=== PATIENT | male | born 1930 | race Caucasian/White ===

== ENCOUNTER 2018-07-22 17:05 | Observation (INO) | payer MEDICARE, OTHER ==
[2018-07-22] MEDS ORDERED: FUROSEMIDE 10 MG/ML VIAL IV ONE (17:43)
[2018-07-22 18:00] LABS: Hematocrit 35.4 % (42.0-52.0); Hemoglobin 11.2 gm/dL (13.5-18.0); Mean Cell Volume 94.9 fl (78-100); Mean Corpuscular Hgb Conc 31.6 g/dl (32-36); Mean Platelet Volume 9.3 fl (8-11.3); Neutrophil # 5.3 K/mm3 (1.3-6.0); Neutrophil % 72.9 % (42-75.0); Platelet Count 138 K/mm3 (150-450); Red Blood Count 3.73 M/mm3 (4.7-6.0); Red Cell Distribution Width 13.7 % (11.5-14.0); White Blood Count 7.3 K/mm3 (4.0-10.5)
[2018-07-22 18:15] LABS: Prothrombin Time (Patient) 24.9 Seconds (9.0-11.0)
[2018-07-22 18:16] LABS: INR 2.47 INR (0.90-1.10)
[2018-07-22 18:23] LABS: Troponin I Less than 0.017 ng/mL (0.00-0.10)
[2018-07-22 18:26] LABS: ALT 24 U/L (19-67); AST 21 U/L (0-48); Alkaline Phosphatase * 61 U/L (50-170); Anion Gap 9.8 mmol/L (6.8-13.8); BNP * 4130 pg/mL (5-650); BUN/Creatinine Ratio 25.4 (9.0-21.6); Bilirubin, Total 0.6 mg/dL (0.0-1.1); Blood Urea Nitrogen 44 mg/dL (6-23); Ca. Corrected For Albumin 9.1 mg/dL (8.4-10.2); Calcium * 8.6 mg/dL (7.9-10.9); Carbon Dioxide 27.3 mmol/L (24-32.6); Chloride 104 mmol/L (97-106); Glucose * 139 mg/dL (70-110); Potassium 4.1 mmol/L (3.4-4.6); Sodium 137 mmol/L (132-142); Total Protein 7.4 gm/dL (6.2-8.2)
--- NOTE | 2018-07-22 19:23 | ERNOTE ---
Dyspnea - Date Date of Service: 07/22/18 - General Presenting Symptoms: shortness of breath Time Seen by Provider: 07/22/18 17:17 Source: patient, family Exam Limitations: no limitations - Immun/Allergies/Home Medications Immunizations: IMMUNIZATION HX Immunizations Up to Date Yes History of Influenza Vaccine Yes Hx Pneumococcal Vaccination Yes Allergies/Adverse Reactions: Allergies phenytoin [From Dilantin] Allergy (Intermediate, Verified 07/21/18 10:09) hives lisinopril Adverse Reaction (Intermediate, Verified 07/21/18 10:09) cough Home Medications: HOME MEDICATIONS Metoprolol Tartrate [Lopressor] 12.5 mg PO BID 11/14/14 [Last Taken 11/14/14 09:00] Simvastatin [Zocor] 10 mg PO DAILY 11/14/14 [Last Taken 11/13/14 21:00] Levothyroxine Sodium [Synthroid] 75 mcg PO DAILY@0700 #30 tab 11/22/14 [Last Taken Unknown] albuterol sulfate concentrate 2.5 mg/0.5 mL solution for nebulization 2.5 mg IH BID PRN #30 ea 03/06/18 [Last Taken Unknown] diltiazem CD 240 mg capsule,extended release 24 hr 240 mg PO DAILY #90 cap 05/19/18 [Last Taken Unknown] blood sugar diagnostic strips See Dose Instructions .ROUTE .MEDSUPPLY #20 ea 05/26/18 [Last Taken Unknown] compressor, for nebulizer See Dose Instructions .ROUTE .MEDSUPPLY #1 ea 05/26/18 [Last Taken Unknown] diabetic supplies, miscellaneous kit See Dose Instructions .ROUTE .MEDSUPPLY #1 ea 05/26/18 [Last Taken Unknown] glimepiride 4 mg tablet 4 mg PO DAILY tab 05/26/18 [Last Taken Unknown] lancets See Dose Instructions .ROUTE .MEDSUPPLY #50 ea 05/26/18 [Last Taken Unknown] losartan 100 mg tablet 100 mg PO DAILY 05/26/18 [Last Taken Unknown] warfarin 4 mg tablet 4 mg PO DAILY tab 05/26/18 [Last Taken Unknown] Finasteride [Proscar] 5 mg PO DAILY 07/17/18 [Last Taken Unknown] Potassium Chloride [K-Tab ER] 10 meq PO DAILY #30 tablet.er 07/17/18 [Last Taken Unknown] Tamsulosin HCl [Flomax] 0.4 mg PO DAILY@1800 07/17/18 [Last Taken Unknown] furosemide 40 mg tablet 80 mg PO DAILY tab 07/21/18 [Last Taken Unknown] - History of Present Illness Narrative: Patient presents to the ED for increased SOB. He has been being treated for CHF with doubled lasix. He by report lives alone and is becoming gradually more SOB with exertion despite increased lasix. Increased leg swelling. Rest resolves SOB. No CP. No fever or cough. Has been seen in ED and in the office. Taking medication sas directed. By report may have had a 5 LBS weight gain over the last 24 hours Severity: moderate Treatment CLIENT EXECUTIVE: other - home medications Initiating event: Denies: out of meds Frequency of episodes: Reports: occassional episodes Modifying Factors - (Improves): Reports: other - rest Modifying Factors (Worsens): Reports: other - exertion Associated Symptoms-Dyspnea: Reports: ankle/leg swelling. Denies: fever/chills, chest pain/discomfort, wheezing Prior Treatment: Reports: recently seen Review of Systems - Review of Systems Constitutional: Absent: fever ENT: Absent: sore throat Respiratory: Present: shortness of breath Cardiology: Absent: chest pain Gastrointestinal/Abdominal: Absent: abdominal pain Skin: Absent: rash All Other Systems: All systems neg except as marked Medical History (Last Reviewed 07/22/18 @ 19:19 by Tl Valdez MD) Psoriasis (Chronic) Onset Date: ~2003 Obesity (Chronic) Onset Date: ~2002 Mitral regurgitation (Chronic) Onset Date: ~2004 Hypothyroidism (Chronic) Onset Date: Unknown Hypertension (Chronic) Onset Date: ~1992 Hyperlipidemia (Chronic) Onset Date: ~1997 Gout (Chronic) Onset Date: ~2002 Diabetes 1.5, 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 NYHA Class II Chronic kidney disease (Chronic) Onset Date: Unknown Stage III Carotid artery disease (Chronic) Onset Date: ~2002 Atrial fibrillation (Chronic) Onset Date: ~2002 Chronic developed post CABG. Coumadin [place] Asbestos exposure (Chronic) Onset Date: Unknown Pleural effusion Onset Date: ~10/2005 Pneumonia Onset Date: ~10/2005 with decortication 2011 right parapneumonic effusion Restrictive lung disease Onset Date: Unknown Surgical History: Surgical History (Last Reviewed 07/22/18 @ 19:19 by Tl Valdez MD) H/O colonoscopy Onset Date: ~11/18/14 Hernando with decompression and dilation of anal canal H/O colonoscopy Onset Date: ~08/09/11 With Biopsy. Rectum biopsy benign squamous mucosa with mild inflammation. Reactive squamous mucosa consistent with a fibroephithelial polyp. Dr. Villagomez H/O inguinal hernia repair Onset Date: ~08/1987 Left History of cardiac cath Onset Date: ~04/30/03 EF 62 right dominant, L main normal, LAD prox occluded. Diag 50-75% LCx bifurcating OM, origin 50-75% stenosis. RCA large and diffuse irregs prox. Distal 50-75% stenosis. PDA mid 50-75% PLB large no sig disease. History of coronary artery bypass surgery Onset Date: ~2002 3 vessel. HOPE to the LAD, SVG to the posterior lateral branch and SVG to the OM Pleural scarring Onset Date: ~2006 Left lung decortication for chronic exudative pleural effusion with residual restrictive lung disease and pleural scarring. Family History: Family History (Last Reviewed 07/22/18 @ 19:19 by Tl Valdez MD) Father , age 72 CHF (congestive heart failure) Mother , age 32 Strep throat Blood infection Brother , age 42 Brain aneurysm Social History: Preferred Language Bolivian Do you have any scientology or Yes: judaism cultural preference? Smoking Status Former smoker Have you smoked in the past 12 No months Do you dip or chew tobacco No Alcohol Use rarely Drug Use none (Last Reviewed 07/21/18 @ 10:12 by Harriet Rojas RN) No Social History Section defined Physical Exam - Physical Exam General Appearance: Present: alert, no apparent distress Head Exam: Present: normal inspection, no evidence of injury Ears, Nose, Throat: Present: normal ENT inspection Neck: Present: normal inspection Respiratory: Present: no respiratory distress, no accessory muscle use, other - faint crackles in the bases Cardiovascular/Chest: Present: normal peripheral pulses, irregularly irregular Gastrointestinal/Abdominal: Present: normal bowel sounds, nontender, nondistended, soft Back Exam: Present: no vertebral tenderness Extremity Exam: Present: pedal edema, extremity edema, other - 3+ edema bilatera lly Neurological Exam: Present: alert, no motor/sensory deficits Skin Exam: Present: normal color, warm/dry Progress - Results and Orders Patient's Lab Results:: I have reviewed the patient's lab results. - Vital Signs Patient's Vital Signs:: I have reviewed the patient's vital signs. Vital Signs: Vital Signs 07/22/18 17:05 07/22/18 17:43 07/22/18 17:49 Temperature 36.9 C Pulse Rate 66 66 70 Respiratory Rate 21 H 21 H 20 Blood Pressure 214/98 H 173/69 H 173/69 H O2 Sat by Pulse Oximetry 94 94 94 07/22/18 17:58 Temperature Pulse Rate 84 Respiratory Rate Blood Pressure 155/78 H O2 Sat by Pulse Oximetry - EKG EKG: atrial fibrillation EKG read: Interp. by me EKG Comments: A fib rate 75. Non-specific changes, no clear STEMI - X-Ray X-Ray #1 X-Ray: chest Interpretation: Interp. by me X-ray Comments: No real-time radiology reads. CHF . - Progress/Reassessment Chief Complaint: Dyspnea Progress Note-Subjective: 07/22/18 19:20 Patient had significant WOB with exertion and desats to 87 %. IV lasix given. D/W Dr Cobb. After this I discussed options with the patient, inpatient vs outpatient. Family felt that patient should be admitted and patient was agreeable to this. Dr Cobb was also agreeable. Failure of outpatient management. Departure Clinical Impression: CHF (congestive heart failure), Failure of outpatient treatment - Departure Disposition: Still a patient Condition: Fair
[2018-07-22] MEDS ORDERED: ALBUTEROL SULFATE 2.5 MG/0.5 ML VIAL.NEB IH PRN (21:29)
[2018-07-23] MEDS: METOPROLOL TARTRATE 25 MG TABLET PO SCH ×2 (00:17→09:11)
[2018-07-23 05:44] LABS: Anion Gap 10.6 mmol/L (6.8-13.8); BUN/Creatinine Ratio 24.8 (9.0-21.6); Calcium * 8.8 mg/dL (7.9-10.9); Estimated Creat Clear 30.9; Potassium 3.6 mmol/L (3.4-4.6)
[2018-07-23] MEDS ORDERED: FUROSEMIDE 10 MG/ML VIAL IV ONE (06:00)
[2018-07-23] MEDS ORDERED: LEVOTHYROXINE SODIUM 75 MCG TABLET PO SCH (07:00)
[2018-07-23] MEDS ORDERED: POTASSIUM CHLORIDE 20 MEQ TABLET.SA PO ONE (07:18)
[2018-07-23] MEDS: NYSTATIN 15 APPL BTL TP SCH ×2 (08:01→09:15)
--- NOTE | 2018-07-23 08:07 | HP ---
Chief Complaint - Chief Complaint Date of Service: 07/23/18 Time of Service: 07:46 Chief Complaint: shorteness of breath History of Present Illness: Ari Disla, is an 88-year-old white male, with past medical history of congestive heart failure, coronary artery disease, chronic renal failure stage III, diabetes mellitus type 2, hypertension, restrictive lung disease, who was admitted on 07/22/2018 because of increasing shortness of breath. 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 He denied chest pain, palpitations, coughing, fever or chills. He says that he could not walk more than 50 feet before he would start puffing. He was seen in the emergency room last week and was diagnosed with exacerbation of his congestive heart failure and was sent home on double his Lasix dose. He fo llowed up in the clinic 3 days later with improvement. He had lost 7 pounds then. His doubled Lasix dose was continued. Since the visit his shortness of breath started again especially with exertion but ot at rest. He had an increase in weight of 5 pounds with marked swelling of his legs. He went back to the emergency room and was admitted for further treatment. He got 40 mg of Lasix in the emergency room and another 40 mg this morning and has diuresed sginificantly and feels better. 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 NYHA Class II Chronic kidney disease (Chronic) Onset Date: Unknown Stage III Carotid artery disease (Chronic) Onset Date: ~2002 Atrial fibrillation (Chronic) Onset Date: ~2002 Chronic developed post CABG. Coumadin [place] Asbestos exposure (Chronic) Onset Date: Unknown Pleural effusion Onset Date: ~10/2005 Pneumonia Onset Date: ~10/2005 with decortication 2011 right parapneumonic effusion Restrictive lung disease Onset Date: Unknown Surgical History: Surgical History (Last Reviewed 07/22/18 @ 20:46 by Linnea Aguilera RN) H/O colonoscopy Onset Date: ~11/18/14 Hernando with decompression and dilation of anal canal H/O colonoscopy Onset Date: ~08/09/11 With Biopsy. Rectum biopsy benign squamous mucosa with mild inflammation. Reactive squamous mucosa consistent with a fibroephithelial polyp. Dr. Villagomez H/O inguinal hernia repair Onset Date: ~08/1987 Left History of cardiac cath Onset Date: ~04/30/03 EF 62 right dominant, L main normal, LAD prox occluded. Diag 50-75% LCx bifurcating OM, origin 50-75% stenosis. RCA large and diffuse irregs prox. Distal 50-75% stenosis. PDA mid 50-75% PLB large no sig disease. History of coronary artery bypass surgery Onset Date: ~2002 3 vessel. HOPE to the LAD, SVG to the posterior lateral branch and SVG to the OM Pleural scarring Onset Date: ~2006 Left lung decortication for chronic exudative pleural effusion with residual restrictive lung disease and pleural scarring. Family History: Family History (Last Reviewed 07/22/18 @ 20:46 by Linnea Aguilera RN) Father , age 72 CHF (congestive heart failure) Mother , age 32 Strep throat Blood infection Brother , age 42 Brain aneurysm Social History: Patient Lives/Resources Home Utilized Occupation retired Preferred Language Irish Do you have any hindu or Yes: Caodaism cultural preference? Smoking Status Former smoker Have you smoked in the past 12 No months Do you dip or chew tobacco No Alcohol Use rarely Drug Use none (Last Reviewed 07/21/18 @ 10:12 by Harriet Rojas RN) No Social History Section defined Review Of Systems (GEN) - Review of Systems Generalized/Overall Review: Absent: Weakness, Chills, Fever EENTM: Absent: Double Vision Respiratory: Present: Shortness of Breath. Absent: Cough, Orthopnea, Wheezing Cardiac: Present: Edema. Absent: Chest Pain, Palpitations Abdominal: Absent: Nausea, Vomiting Genitourinary: Absent: Urgency, Frequency Musculoskeletal: Present: Joint Pain Immunizations: IMMUNIZATION HX Immunizations Up to Date Yes History of Influenza Vaccine Yes Hx Pneumococcal Vaccination Yes Allergies/Adverse Reactions: Allergies Allergy/AdvReac Type Severity Reaction Status Date / Time phenytoin [From Dilantin] Allergy Intermediate hives Verified 07/21/18 10:09 lisinopril AdvReac Intermediate cough Verified 07/21/18 10:09 Home Medications: HOME MEDICATIONS Metoprolol Tartrate [Lopressor] 12.5 mg PO BID 11/14/14 [Last Taken 11/14/14 09:00] Simvastatin [Zocor] 10 mg PO DAILY 11/14/14 [Last Taken 11/13/14 21:00] Levothyroxine Sodium [Synthroid] 75 mcg PO DAILY@0700 #30 tab 11/22/14 [Last Taken Unknown] albuterol sulfate concentrate 2.5 mg/0.5 mL solution for nebulization 2.5 mg IH BID PRN #30 ea 03/06/18 [Last Taken Unknown] diltiazem CD 240 mg capsule,extended release 24 hr 240 mg PO DAILY #90 cap 05/19/18 [Last Taken Unknown] glimepiride 4 mg tablet 4 mg PO DAILY tab 05/26/18 [Last Taken Unknown] losartan 100 mg tablet 100 mg PO DAILY 05/26/18 [Last Taken Unknown] warfarin 4 mg tablet 4 mg PO .TU,WE,TH,SA,[place] tab 05/26/18 [Last Taken Unknown] Finasteride [Proscar] 5 mg PO DAILY 07/17/18 [Last Taken Unknown] Tamsulosin HCl [Flomax] 0.4 mg PO DAILY@1800 07/17/18 [Last Taken Unknown] furosemide 40 mg tablet 80 mg PO DAILY tab 07/21/18 [Last Taken Unknown] Potassium Chloride [K-Tab ER] 5 meq PO DAILY 07/22/18 [Last Taken Unknown] Warfarin Sodium 2 mg PO .MON,FRI 07/22/18 [Last Taken Unknown] Exam - Exam Vital Signs: Vital Signs - Last Taken Temp 37.2 C 07/23/18 02:46 Pulse 73 07/23/18 05:19 Resp 18 07/23/18 02:46 BP 157/74 H 07/23/18 05:19 Pulse Ox 90 L 07/23/18 02:46 Constitutional: Present: Alert, Oriented x3, Cooperative ENT Exam: Present: hard of hearing Eye Exam: bilateral eye: normal inspection, PERRL, EOMI Neck: Present: supple Respiratory: Present: decreased breath sounds, No rales, No wheezing Cardiovascular/Chest: Present: no JVD, systolic murmur, irregularly irregular Abdomen: Present: Normal bowel sounds, soft, nontender, nondistended Extremity: Present: no calf tenderness, lower extremity edema Diagnostic Studies: Abnormal Lab Results 07/22/18 07/22/18 07/22/18 Range/Units 17:50 17:50 17:50 RBC 3.73 L (4.7-6.0) M/mm3 Hgb 11.2 L (13.5-18.0) gm/dL Hct 35.4 L (42.0-52.0) % MCHC 31.6 L (32-36) g/dl Plt Count 138 L (150-450) K/mm3 Lymphocytes % 12.8 L (20-51) % Monocytes % 11.2 H (0.0-9) % Lymphocytes # 0.94 L (1.5-3.5) k/mm3 PT 24.9 H (9.0-11.0) Seconds INR (Anticoag Therapy) 2.47 H (0.90-1.10) INR BUN 44 H (6-23) mg/dL Creatinine 1.73 H (0.4-1.4) mg/dL Est GFR (Non-Af Amer) 40 L (60-130) mL/min BUN/Creatinine Ratio 25.4 H (9.0-21.6) Random Glucose 139 H D (70-110) mg/dL B-Natriuretic Peptide 4130 H (5-650) pg/mL Albumin 3.0 L (3.4-5.0) gm/dl 07/23/18 Range/Units 05:21 RBC (4.7-6.0) M/mm3 Hgb (13.5-18.0) gm/dL Hct (42.0-52.0) % MCHC (32-36) g/dl Plt Count (150-450) K/mm3 Lymphocytes % (20-51) % Monocytes % (0.0-9) % Lymphocytes # (1.5-3.5) k/mm3 PT (9.0-11.0) Seconds INR (Anticoag Therapy) (0.90-1.10) INR BUN 41 H (6-23) mg/dL Creatinine 1.65 H (0.4-1.4) mg/dL Est GFR (Non-Af Amer) 42 L (60-130) mL/min BUN/Creatinine Ratio 24.8 H (9.0-21.6) Random Glucose (70-110) mg/dL B-Natriuretic Peptide 4467 H (5-650) pg/mL Albumin (3.4-5.0) gm/dl Laboratory Results WBC 7.3 K/mm3 (4.0-10.5) 07/22/18 17:50 RBC 3.73 M/mm3 (4.7-6.0) L 07/22/18 17:50 Hgb 11.2 gm/dL (13.5-18.0) L 07/22/18 17:50 Hct 35.4 % (42.0-52.0) L 07/22/18 17:50 MCV 94.9 fl (78-100) 07/22/18 17:50 MCH 30.0 pg (27-31) 07/22/18 17:50 MCHC 31.6 g/dl (32-36) L 07/22/18 17:50 RDW 13.7 % (11.5-14.0) 07/22/18 17:50 Plt Count 138 K/mm3 (150-450) L 07/22/18 17:50 MPV 9.3 fl (8-11.3) 07/22/18 17:50 Immature Gran % (Auto) 0.40 % (0.001-0.429) 07/22/18 17:50 Immature Gran # (Auto) 0.03 K/mm3 (0.000-0.0310) 07/22/18 17:50 Neutrophils % 72.9 % (42-75.0) 07/22/18 17:50 Lymphocytes % 12.8 % (20-51) L 07/22/18 17:50 Monocytes % 11.2 % (0.0-9) H 07/22/18 17:50 Eosinophils % 1.9 % (0.0-3.0) 07/22/18 17:50 Basophils % 0.8 % (0.0-1.0) 07/22/18 17:50 Nucleated RBC % 0.0 k/mm3 (0-1) 07/22/18 17:50 Neutrophils # 5.3 K/mm3 (1.3-6.0) 07/22/18 17:50 Lymphocytes # 0.94 k/mm3 (1.5-3.5) L 07/22/18 17:50 Monocytes # 0.8 k/mm3 (0.0-1.0) 07/22/18 17:50 Eosinophils # 0.1 k/mm3 (0.0-0.7) 07/22/18 17:50 Absolute Basophils 0.1 k/mm3 (0.0-0.1) 07/22/18 17:50 PT 24.9 Seconds (9.0-11.0) H 07/22/18 17:50 INR (Anticoag Therapy) 2.47 INR (0.90-1.10) H 07/22/18 17:50 Sodium 141 mmol/L (132-142) 07/23/18 05:21 Plasma Sodium 141 mmol/L (130-142) 07/23/18 05:21 Potassium 3.6 mmol/L (3.4-4.6) 07/23/18 05:21 Chloride 106 mmol/L (97-106) 07/23/18 05:21 Carbon Dioxide 28.0 mmol/L (24-32.6) 07/23/18 05:21 Anion Gap 10.6 mmol/L (6.8-13.8) 07/23/18 05:21 BUN 41 mg/dL (6-23) H 07/23/18 05:21 Creatinine 1.65 mg/dL (0.4-1.4) H 07/23/18 05:21 Est GFR (Non-Af Amer) 42 mL/min (60-130) L 07/23/18 05:21 BUN/Creatinine Ratio 24.8 (9.0-21.6) H 07/23/18 05:21 Random Glucose 78 mg/dL (70-110) D 07/23/18 05:21 Calcium 8.8 mg/dL (7.9-10.9) 07/23/18 05:21 Calcium Adj for Albumin 9.1 mg/dL (8.4-10.2) 07/22/18 17:50 Total Bilirubin 0.6 mg/dL (0.0-1.1) 07/22/18 17:50 AST 21 U/L (0-48) 07/22/18 17:50 ALT 24 U/L (19-67) 07/22/18 17:50 Alkaline Phosphatase 61 U/L (50-170) 07/22/18 17:50 Troponin I Less than 0.017 ng/mL (0.00-0.10) 07/22/18 17:50 B-Natriuretic Peptide 4467 pg/mL (5-650) H 07/23/18 05:21 Total Protein 7.4 gm/dL (6.2-8.2) 07/22/18 17:50 Albumin 3.0 gm/dl (3.4-5.0) L 07/22/18 17:50 Assessment/Plan - Assessment/Plan (1) Failure of outpatient treatment Problem: Acute (2) CHF exacerbation Assessment: Fluid balance- -1780 ml. got another 40 m IV lasix at 6 a.m. will restart his oral lasix at 120 mg PO MWF and 80 mf allother days. will walk patient . if feel ing much better. will discharge patietn today. will do follow up Echo on OPD basis. 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 continue with low salt diet. Problem: Acute Qualifiers: Heart failure type: diastolic Qualified Code(s): I50.33 - Acute on chronic diastolic (congestive) heart failure (3) Hypothyroidism Problem: Chronic Qualifiers: Hypothyroidism type: acquired Qualified Code(s): E03.9 - Hypothyroidism, unspecified (4) Hypertension Problem: Chronic Qualifiers: Hypertension type: essential hypertension Qualified Code(s): I10 - Essential (primary) hypertension (5) Hyperlipidemia Problem: Chronic Qualifiers: Hyperlipidemia type: pure hypercholesterolemia Qualified Code(s): E78.00 - Pure hypercholesterolemia, unspecified; E78.0 - Pure hypercholesterolemia (6) CAD (coronary artery disease) Problem: Chronic Qualifiers: Coronary Disease-Associated Artery/Lesion type: bypass graft [place] vs. 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
[2018-07-23] MEDS ORDERED: FINASTERIDE 5 MG TABLET PO SCH (09:00)
[2018-07-23] MEDS ORDERED: POTASSIUM CHLORIDE 10 MEQ TABLET.SA PO SCH (09:00)
[2018-07-23] MEDS ORDERED: FUROSEMIDE 40 MG TABLET PO SCH (09:00)
[2018-07-23] MEDS ORDERED: LOSARTAN POTASSIUM 50 MG TABLET PO SCH (09:00)
[2018-07-23] MEDS ORDERED: DILTIAZEM HCL 240 MG CAP.SR.24H PO SCH (09:00)
[2018-07-23] MEDS ORDERED: SIMVASTATIN 10 MG TABLET PO SCH ×2 (09:00→21:00)
[2018-07-23] MEDS ORDERED: FUROSEMIDE 80 MG TABLET PO SCH (09:00)
[2018-07-23] MEDS ORDERED: GLIMEPIRIDE 4 MG TABLET PO SCH (09:00)
--- NOTE | 2018-07-23 09:59 | DS ---
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 Problem: Acute Qualifiers: Heart failure type: diastolic Qualified Code(s): I50.33 - Acute on chronic diastolic (congestive) heart failure (2) Failure of outpatient treatment Problem: Acute (3) Hypothyroidism Problem: Chronic Qualifiers: Hypothyroidism type: acquired Qualified Code(s): E03.9 - Hypothyroidism, unspecified (4) Hypertension Problem: Chronic Qualifiers: Hypertension type: essential hypertension Qualified Code(s): I10 - Essential (primary) hypertension (5) Hyperlipidemia Problem: Chronic Qualifiers: Hyperlipidemia type: pure hypercholesterolemia Qualified Code(s): E78.00 - Pure hypercholesterolemia, unspecified; E78.0 - Pure hypercholesterolemia (6) CAD (coronary artery disease) Problem: Chronic Qualifiers: Coronary Disease-Associated Artery/Lesion type: bypass graft [place] vs. 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 The last 2 weeks [employer], the patient had been having increased shortness of breath. He denied chest pain, palpitations, coughing, fever or chills. He says that he could not walk more than 50 feet before he would start puffing. He was seen in the emergency room last week and was diagnosed with exacerbation of his congestive heart failure and was sent home on double his Lasix dose. He followe d up in the clinic 3 days later with improvement. He had lost 7 pounds then. His doubled Lasix dose was continued. Since the visit his shortness of breath started again especially with exertion but not at rest. He had an increase in weight of 5 pounds with marked swelling of his legs. He went back to the emergency room and was admitted for further treatment. He got 40 mg of Lasix in the emergency room and another 40 mg early this morning and has diuresed significantly and feels better. Will discharge him today and schedule an outpatient follow up Echocardiogram. Sergei increase his Lasix to 120 mg PO MWF and 80 mg all other days. Will follow him up in 1 week in the office. Procedures Performed: none Results and Findings: Lab Pending Results 07/22/18 17:50: WBC 7.3, RBC 3.73 L, Hgb 11.2 L, Hct 35.4 L, MCV 94.9, MCH 30.0, MCHC 31.6 L, RDW 13.7, Plt Count 138 L, MPV 9.3, Immature Gran % (Auto) 0.40, Immature Gran # (Auto) 0.03, Neutrophils % 72.9, Lymphocytes % 12.8 L, Monocytes % 11.2 H, Eosinophils % 1.9, Basophils % 0.8, Nucleated RBC % 0.0, Neutrophils # 5.3, Lymphocytes # 0.94 L, Monocytes # 0.8, Eosinophils # 0.1, Absolute Basophils 0.1 07/22/18 17:50: PT 24.9 H, INR (Anticoag Therapy) 2.47 H 07/22/18 17:50: Sodium 137, Plasma Sodium 138, Potassium 4.1, Chloride 104, Carbon Dioxide 27.3, Anion Gap 9.8, BUN 44 H, Creatinine 1.73 H, Est GFR (Non-Af Amer) 40 L, BUN/Creatinine Ratio 25.4 H, Random Glucose 139 H D, Calcium 8.6, Calcium Adj for Albumin 9.1, Total Bilirubin 0.6, AST 21, ALT 24, Alkaline Phosphatase 61, Troponin I Less than 0.017, B-Natriuretic Peptide 4130 H, Total Protein 7.4, Albumin 3.0 L 07/23/18 05:21: Sodium 141, Plasma Sodium 141, Potassium 3.6, Chloride 106, Carbon Dioxide 28.0, Anion Gap 10.6, BUN 41 H, Creatinine 1.65 H, Est GFR (Non- Af Amer) 42 L, BUN/Creatinine Ratio 24.8 H, Random Glucose 78 D, Calcium 8.8, B-Natriuretic Peptide 4467 H Discharge Location: Home Disposition: Home Health Service Condition: Stable Discharge Activity: Activity as tolerated Discharge Diet: Low salt Referrals: Elaine Cobb MD [Primary Care Provider] - Additional Patient Instructions (free text): -Please make TCM appointment unless prison discharge. Thank you! Linnea @ [phone]. Follow up with PCP in 1 week. Prescriptions (Any new or edited meds): Furosemide [Lasix] 40 mg PO DAILY #120 tab Nystatin [Mycostatin Powder] 1 appl TP BID #1 btl Complete Home Medications List: Complete Home Medication List: Metoprolol Tartrate [Lopressor] 12.5 mg PO BID 11/14/14 Simvastatin [Zocor] 10 mg PO DAILY 11/14/14 Levothyroxine Sodium [Synthroid] 75 mcg PO DAILY@0700 #30 tab 11/22/14 albuterol sulfate concentrate 2.5 mg/0.5 mL solution for nebulization 2.5 mg IH BID PRN #30 ea 03/06/18 diltiazem CD 240 mg capsule,extended release 24 hr 240 mg PO DAILY #90 cap 05/19/18 glimepiride 4 mg tablet 4 mg PO DAILY tab 05/26/18 losartan 100 mg tablet 100 mg PO DAILY 05/26/18 warfarin 4 mg tablet 4 mg PO .TU,WE,TH,SA,[place] tab 05/26/18 Finasteride [Proscar] 5 mg PO DAILY 07/17/18 Tamsulosin HCl [Flomax] 0.4 mg PO DAILY@1800 07/17/18 Potassium Chloride [K-Tab ER] 5 meq PO DAILY 07/22/18 Warfarin Sodium 2 mg PO .MON,FRI 07/22/18 Furosemide [Lasix] 40 mg PO DAILY #120 tab 07/23/18 Nystatin [Mycostatin Powder] 1 appl TP BID #1 btl 07/23/18 Amb Orders for Discharge: Basic Metabolic Panel Time Frame: 1 Week, Location: Laboratory BNP * Time Frame: 1 Week, Location: Laboratory US Echocardiogram Complete * Time Frame: 1 Week, Location: Radiology
[2018-07-23 11:46] VITALS: BP 134/70
[2018-07-23] MEDS ORDERED: WARFARIN SODIUM 4 MG TABLET PO SCH (17:00)
[2018-07-23] MEDS ORDERED: TAMSULOSIN HCL 0.4 MG CAP.SR.24H PO SCH (18:00)
[2018-07-25] MEDS ORDERED: WARFARIN SODIUM 2 MG TABLET PO SCH (17:00)
== END 2018-07-23 11:51 | disposition home health service (06) ==
LOC: ER 17:05 → MS 17:05
PROVIDERS: ADMIT Internal Medicine; ATTEND Internal Medicine
CPT/HCPCS: 36415; 71020; 71046; 80048; 80053; 83519; 83880; 84484; 85025; 85610; 96374; 99285; G0378